=== PATIENT | female | born 1970 | race Caucasian/White ===

== ENCOUNTER 2016-11-17 14:03 | Emergency (ER) | payer MEDICAID ==
[~2016-11-17] VITALS: Ht 160 cm; Wt 60.8 kg
[2016-11-17 15:31] LABS: BASOPHIL % 0.3 % (0-2); PLATELET COUNT 216 x10^3mcL (130-400); RED CELL DISTRIBUTION WIDTH 13.4 % (11.5-14.5)
[2016-11-17 15:37] LABS: UA SPECIFIC GRAVITY 1.015 (1.005-1.035); microscopic required? YES; urine erythrocyte 2+ (NEGATIVE)
[2016-11-17 15:45] LABS: CALCIUM 8.4 mg/dL (8.5-10.1); CARBON DIOXIDE 27.4 mmol/L (21-32); CHLORIDE SERUM 106 mmol/L (98-107); CREATININE SERUM 0.7 mg/dL (0.6-1.0); GFR1 > 60 mL/min; GLUCOSE SERUM 90 mg/dL (74-106); POTASSIUM SERUM 3.5 mmol/L (3.5-5.1); SODIUM SERUM 140 mmol/L (136-145)
[2016-11-17 15:50] LABS: ALBUMIN 3.4 g/dL (3.4-5.0); ALKALINE PHOSPHATASE 63 U/L (46-116); ALT/SGPT 16 U/L (14-59); AST/SGOT 10 U/L (15-37); BILIRUBIN TOTAL 1.1 mg/dL (0.20-1.00); TOTAL PROTEIN, SERUM 6.8 g/dL (6.4-8.2)
[2016-11-17 18:08] VITALS: BP 126/70
== END 2016-11-17 18:08 | disposition home or self-care (01) ==
LOC: ED 14:03
PROVIDERS: Specialist
DX: N39.0 Urinary tract infection, site not specified (principal); N73.9 Female pelvic inflammatory disease, unspecified
CPT/HCPCS: 87491; 87591; J0696; J1170; J1885; J2405; J7030; Q0092

== ENCOUNTER 2017-03-18 10:42 | Emergency (ER) | payer MEDICAID ==
[~2017-03-18] VITALS: Ht 160 cm; Wt 60.4 kg
[2017-03-18 12:48] VITALS: BP 120/83
== END 2017-03-18 12:48 | disposition home or self-care (01) ==
LOC: ED 10:42
DX: R51 Headache (principal); I10 Essential (primary) hypertension; R11.0 Nausea
CPT/HCPCS: J1885; J2765

== ENCOUNTER 2018-06-28 22:45 | Emergency (ER) | payer MEDICAID ==
[~2018-06-28] VITALS: Ht 160 cm; Wt 61.2 kg
[2018-06-28 22:59] VITALS: Ht 160 cm; Wt 61.2 kg
[2018-06-29 01:55] VITALS: BP 139/90
== END 2018-06-29 01:55 | disposition home or self-care (01) ==
LOC: ED 22:45
DX: S46.912A Strain of unspecified muscle, fascia and tendon at shoulder and upper arm level, left arm, initial encounter (principal); X58.XXXA Exposure to other specified factors, initial encounter; Y93.89 Activity, other specified; Y92.89 Other specified places as the place of occurrence of the external cause; Y99.8 Other external cause status
CPT/HCPCS: J1885; Q0092

== ENCOUNTER 2018-12-26 14:56 | Emergency (ER) | payer MEDICAID ==
[~2018-12-26] VITALS: Ht 160 cm; Wt 61.2 kg
[2018-12-26 15:00] VITALS: Ht 160 cm; Wt 61.2 kg
[2018-12-26 19:31] VITALS: BP 139/76
== END 2018-12-26 19:31 | disposition home or self-care (01) ==
LOC: ED 14:56
DX: G44.209 Tension-type headache, unspecified, not intractable (principal); Z88.0 Allergy status to penicillin
CPT/HCPCS: J2001